=== PATIENT | male | born 1980 | race Two or more races ===

== ENCOUNTER 2025-01-27 17:45 | Inpatient (IN) | payer MEDICAID, OTHER ==
[~2025-01-27] VITALS: Ht 175.3 cm; Wt 97.9 kg
[2025-01-27] MEDS: NITROGLYCERIN 0.4 MG SL TAB SL ONE (18:20)
--- NOTE | 2025-01-27 18:54 | ED.PDOC ---
SOB-HPI HPI Comments HPI: 44 y/o M, presents to the ED for CC of shortness of breath. Patient states, that he has been experiencing shortness of breath with associated symptoms of weakness and nausea xdays. Patient relays, that he has a PMHX of HTN and A-fib and has been complainant with his prescriptions; however he has recently ran out of his atrial fibrillation medication. Patient current takes lisinopril and baby aspirin. Patient denies dizziness, blurred vision, or vomiting. No other symptoms or modifying factors at this time. VITALS: Temp: 98.0 BP:188/127 HR: 77 RR:21 SPO2:95% Past medical history: HTN, AFIB Past surgical history: RIGHT HIP, LEFT FIRST DIGIT HPI: Poor Historian. REVIEW OF SYSTEMS: CONSTITUTIONAL: Denies acute: fever, diaphoresis, chills, HEAD: Denies acute: headache, photophobia Eyes: Denies acute: Double vision, vision loss, eye pain, eye discharge. EARS: Denies acute: tinnitus, hearing loss, ear discharge, ear pain, THROAT: Denies acute: sore throat, swelling, difficulty swallowing , pain with swallowing, change in voice. NECK: Denies acute: neck pain, neck swelling, stiff neck. HEART: Denies acute : chest pain, palpitations, LUNGS: Denies acute: wheezing, cough, hemoptysis ABDOMEN: Denies acute: abdominal pain, , Vomiting, diarrhea, melena , hematemesis, hematochezia SKIN: Denies acute: rash, redness, lesions, itchiness. EXTREMITIES: Denies acute: calf pain, numbness, tingling, weakness, denies pain in extremity. Denies acute: Low back pain. Neuro: Denies acute: focal neurological deficit, motor or sensory focal neurological deficit, tremors, seizure like activity, confusion, dizziness, change in mental status, loss of bowel or bladder function, cauda equina like symptoms. : Denies acute: dysuria, hematuria, flank pain, increase in urinary frequency. PSYCH: Denies acute: hallucination, suicidal ideation, homicidal ideation. PHYSICAL EXAM: General: ---mild-----acute distress, awake and alert. Head: normocephalic, atraumatic. Neck: supple, trachea is midline, no swelling. Throat: Normal phonation. Eyes:, no erythema, no purulent discharge, no proptosis, no icterus. Heart: regular rate, regular rhythm, no significant murmur appreciated. Lungs: no apparent respiratory distress, Able to speak in full sentences. No wheezing, no rhonchi, no crackles. No stridors Clear to auscultation bilaterally. Abdomen: non tender to palpation, non distended, soft, no guarding, no rebound, + bowel sounds. Neuro: Awake, Alert, oriented to name, self, situation, follows commands GCS=15. Speech is normal. Skin: no petechia, no purpura, no cyanosis, non-pale, not jaundice. Lower extremities: --trace b/l- Pitting edema no deformity, no focal swelling, no calf TTP. Makes eye contact. moves all four extremities. Face: no apparent facial droop. Ambulating in the ED independently. ED COURSE: Chief Complaint: Shortness of Breath Time Seen by MD: 18:00 Reviewed notes: Nurses Notes, Medications, Allergies Information Source: Patient Mode of Arrival: Ambulatory Severity: Moderate Timing: Days Duration: Since onset Context: At Rest PE Risk Factors: None History of: None Prehospital treatment: None Modifying Factors: Nothing Associated Signs and Symptoms: None Was a procedure done? Was a procedure done?: No Differential Dx Differential Diagnosis: Other (DDx include ACS, unstable angina, anxiety, PE, pneumothroax, neoplasm, cardiac ischemia, COPD, asthma, CHF, pleural effusion, tobacco abuse, pneumonia, hypoxia, hypercapnia, anemia., infection/sepsis., pulmonary edema. Asthma, Cardiac tamponade, infection.) X-Ray, Labs, Meds, VS Vital Signs Date Time Temp Pulse Resp B/P (MAP) Pulse Ox O2 Delivery O2 Flow Rate FiO2 01/28/25 01:10 69 159/103 01/28/25 00:10 81 172/102 01/28/25 00:04 81 17 172/102 (125) 95 01/28/25 00:04 81 172/102 01/27/25 23:01 69 161/91 01/27/25 22:33 99.1 69 17 161/91 (114) 95 99.1 01/27/25 22:33 69 17 95 Room Air 01/27/25 22:32 161/91 01/27/25 18:20 173/107 01/27/25 18:08 20 95 Room Air* 0 21 01/27/25 18:06 79 01/27/25 18:01 98.0 86 20 173/107 (129) 95 98.0 Lab Test 01/27/25 22:39 01/27/25 22:23 01/27/25 20:53 01/27/25 19:46 Range/Units Urine Color Yellow Yellow Urine Clarity Clear Clear Urine pH 8.5 5.0-9.0 Urine Specific [place] 1.022 1.001-1.035 Urine Protein Trace H Negative Urine Ketones Negative Negative Urine Blood Negative Negative /uL Urine Nitrite Negative Negative Urine Bilirubin Negative Negative Urine Urobilinogen 2 H Negative mg/dL Urine Leukocyte Esterase Negative Negative /uL Urine RBC <1 0 - 3 /hpf Urine Microscopic WBC < 1 0-3 /HPF Urine Squamous Epithelial Cells None seen <5 /hpf Urine Bacteria None seen None Seen /hpf Urine Mucus Few None Seen Urine Glucose Normal Normal mg/dL Urine Opiates Screen Neg NEGATIVE Urine Fentanyl Screen Neg NEGATIVE Urine Barbiturates Screen Neg NEGATIVE Urine Phencyclidine Screen Neg NEGATIVE Urine Amphetamines Screen Neg NEGATIVE Urine Benzodiazepines Screen Neg NEGATIVE Urine Cocaine Screen Neg NEGATIVE Urine Cannabinoids Screen Neg NEGATIVE Blood Gas Specimen Type Arterial Blood Gas Sample Site Right radial Blood Gas Patient Temperature 37.0 Arterial Blood Date Drawn [id number] Arterial Blood pH 7.467 H 7.350-7.450 Arterial Blood Partial Pressure CO2 33.4 L 35.0-48.0 mmHg Arterial Blood Partial Pressure O2 76.6 L 83.0-108.0 mmHg Arterial Blood HCO3 23.6 21.0-28.0 mmol/L Arterial Blood Oxygen Saturation 95.7 94.0-98.0 % Arterial Blood Base Excess 0.7 -2.0-3.0 mmol/L Arterial Blood Oxyhemoglobin 94.9 94.0-98.0 % Arterial Blood Carboxyhemoglobin 0.2 L 0.5-1.5 % Arterial Blood Methemoglobin 0.6 0.0-1.5 % Stone Test Yes Blood Gas Total Hemoglobin 16.40 13.5-17.5 g/dL Blood Gas Modality Room air FiO2 % 21.0 Specimen Drawn By D-Dimer, Quantitative 0.25 0.0-0.49 mg/L FEU Troponin I High Sensitivity 3 L 3 L </=54 ng/L Plasma/Serum Blood Alcohol 4.1 <10 mg/dL Test 01/27/25 18:33 Range/Units White Blood Count 6.5 4.4-10.8 10^3/uL Red Blood Count 5.05 4.5-5.90 10^6/uL Hemoglobin 16.3 13.5-17.5 g/dL Hematocrit 46.9 41.0-53.0 % Mean Corpuscular Volume 92.9 80.0-100.0 fL Mean Corpuscular Hemoglobin 32.2 H 28.0-32.0 pg Mean Corpuscular Hemoglobin Concent 34.7 32.0-36.0 g/dL Red Cell Distribution Width 14.4 H 11.8-14.3 % Platelet Count 267 140-450 10^3/uL Mean Platelet Volume 7.3 6.9-10.8 fL Neutrophils (%) (Auto) 56.2 37.0-80.0 % Lymphocytes (%) (Auto) 31.7 10.0-50.0 % Monocytes (%) (Auto) 10.9 0.0-12.0 % Eosinophils (%) (Auto) 0.6 0.0-7.0 % Basophils (%) (Auto) 0.6 0.0-2.0 % Neutrophils # (Auto) 3.7 1.6-8.6 10 ^3/uL Lymphocytes # (Auto) 2.1 0.4-5.4 10 ^3/uL Monocytes # (Auto) 0.7 0-1.3 10 ^3/uL Eosinophils # (Auto) 0 0-0.8 10 ^3/uL Basophils # (Auto) 0 0-0.2 10 ^3/uL Nucleated Red Blood Cells 0.4 % Sodium Level 139 136-145 mmol/L Potassium Level 3.6 3.5-5.1 mmol/L Chloride Level 103 98-107 mmol/L Carbon Dioxide Level 29 20-31 mmol/L Anion Gap 7 5-15 Blood Urea Nitrogen < 5 L 9-23 mg/dL Creatinine 0.85 0.700-1.30 mg/dL Glomerular Filtration Rate Calc 111 >90 mL/min BUN/Creatinine Ratio 5.9 L 10.0-20.0 Serum Glucose 107 H 74-106 mg/dL Lactic Acid Level 2.0 0.4-2.0 mmol/L Calcium Level 9.6 8.7-10.4 mg/dL Magnesium Level 1.5 L 1.6-2.6 mg/dL Total Bilirubin 0.8 0.2-1.0 mg/dL Aspartate Amino Transferase (AST) 73 H 13-40 U/L Alanine Aminotransferase (ALT) 60 H 7-40 U/L Alkaline Phosphatase 92 46-116 U/L Troponin I High Sensitivity < 3 L </=54 ng/L B-Type Natriuretic Peptide 88.27 0-100 pg/mL Total Protein 7.6 5.7-8.2 g/dL Albumin 4.6 3.2-4.8 g/dL Lipase 38 12-53 U/L [place] [address] Ph: [phone] DIAGNOSTIC IMAGING Diagnostic Imaging Report : [id number] Signed PATIENT: CONSUELO FRYEACCT: [id number] UNIT: [id number] : 1980 LOC: ER ROOM / BED: / AGE / SEX: 44 / M ADM STATUS: REG ER SERVICE 10 ORDERING PHYSICIAN: DANI PRATER DO PROCEDURE(s): CXRP - CHEST PORTABLE REASON: sob/cp/gen weak/ ORDER NUMBER(s): [id number], ACCESSION NUMBER(s): [id number] CHEST RADIOGRAPH Indication: sob/cp/gen weak/ Technique: Single frontal view of the chest was obtained Comparison: None FINDINGS: Lines and Tubes: None Lungs: No focal consolidation. Pleura: No effusion. No pneumothorax. Cardiomediastinal contours: Unremarkable Bones: No acute osseous abnormality. IMPRESSION: No acute cardiopulmonary disease. ATED BY: AGUSTINA LINO DO DICTATED DATE/TIME: 01/27/251922 SIGNED BY: AGUSTINA LINO DO SIGNED DATE/TIME: 01/27/251922 CC: [place] [id number] Ph: [phone] DIAGNOSTIC IMAGING Diagnostic Imaging Report : [id number] Signed PATIENT: PRATIBHA FRYET: [id number] UNIT: [id number] : 1980 LOC: ER ROOM / BED: / AGE / SEX: 44 / M ADM STATUS: REG ER SERVICE 10 ORDERING PHYSICIAN: DANI PRATER DO PROCEDURE(s): HWOCT - HEAD WITHOUT CONTRAST REASON: weak, htn ORDER NUMBER(s): [id number], ACCESSION NUMBER(s): [id number] Procedure: CT HEAD WITHOUT CONTRAST Study Date and Requested Time: 01/27/2025 07:04 PM History: weak, htn Comparison: None Dose: CTDI: 63.82 mGy DLP: 1129.8 mGycm Technique: Multiplanar images obtained through the brain without intravenous contrast. Findings: Normal brain volume and formation. No hemorrhages, masses, mass effect, midline shift, herniation or cytotoxic edema following a large vascular territory. No intra-axial or extra-axial fluid collections. No evidence of hydrocephalus. The basal cisterns are patent. Nonspecific Partially Empty sella. The cerebellar tonsils are in normal position. The cerebellum is unremarkable. The orbits and globes are unremarkable. The paranasal sinuses and mastoids are clear. There are no worrisome calvarial lesions. Impression: No evidence of acute intracranial abnormality. Nonspecific partially empty sella. ATED BY: AGUSTINA LINO DO DICTATED DATE/TIME: 01/27/251938 SIGNED BY: AGUSTINA LINO DO SIGNED DATE/TIME: 01/27/251938 CC: Time of 1ST Reevaluation: 00:00 Reevaluation 1ST: Unchanged Time of 2ND Reevaluation: 00:00 Reevaluation 2ND: Improved Patient Education/Counseling: Diagnosis, Treatment Family Education/Counseling: Other Comments Patient presented with the above HPI.---shortness of breath---workup was initiated. patient was found with the above mentioned diagnosis. the following medications were ordered: please refer to order lists of meds and tests obtained by myself Dr. Prater. Patient ED course and VS have been stabilized. Patient has been reassessed in the ED and remained in a stable condition. Pertinent incidental findings were discussed with the patient and/or family. Patient/family voices understanding and is agreeable with plan. Patient has been observed in the ED adequate length of time to insure improvement/stability. Escalation of care considered: Consideration of escalation to observation or admission Patient was ADMITTED to the medicine team for further evaluation and treatment of their presentation. All the reports of any imaging studies that were ordered by myself were reviewed by myself. Departure 1 Departure Time of Disposition: 22:34 Impression: Primary Impression: Dyspnea Additional Impressions: Hypoxemia Hypertensive crisis Disposition: ADMITTED INPATIENT Admit to: Tele Condition: Guarded Additional Instructions: [place] [id number] Ph: [phone] DIAGNOSTIC IMAGING Diagnostic Imaging Report : [id number] Signed PATIENT: CONSUELO FRYE ACCT: [id number] UNIT: [id number] : 1980 LOC: ER ROOM / BED: / AGE / SEX: 44 / M ADM STATUS: REG ER SERVICE 10 ORDERING PHYSICIAN: DANI PRATER DO PROCEDURE(s): CXRP - CHEST PORTABLE REASON: sob/cp/gen weak/ ORDER NUMBER(s): [id number], ACCESSION NUMBER(s): [id number] CHEST RADIOGRAPH Indication: sob/cp/gen weak/ Technique: Single frontal view of the chest was obtained Comparison: None FINDINGS: Lines and Tubes: None Lungs: No focal consolidation. Pleura: No effusion. No pneumothorax. Cardiomediastinal contours: Unremarkable Bones: No acute osseous abnormality. IMPRESSION: No acute cardiopulmonary disease. ATED BY: AGUSTINA LINO DO DICTATED DATE/TIME: 01/27/251922 SIGNED BY: AGUSTINA LINO DO SIGNED DATE/TIME: 01/27/251922 CC: [place] [id number] Ph: [phone] DIAGNOSTIC IMAGING Diagnostic Imaging Report : [id number] Signed PATIENT: CONSUELO FRYE ACCT: [id number] UNIT: [id number] : 1980 LOC: ER ROOM / BED: / AGE / SEX: 44 / M ADM STATUS: REG ER SERVICE 10 ORDERING PHYSICIAN: DANI PRATER DO PROCEDURE(s): HWOCT - HEAD WITHOUT CONTRAST REASON: weak, htn ORDER NUMBER(s): [id number], ACCESSION NUMBER(s): [id number] Procedure: CT HEAD WITHOUT CONTRAST Study Date and Requested Time: 01/27/2025 07:04 PM History: weak, htn Comparison: None Dose: CTDI: 63.82 mGy DLP: 1129.8 mGycm Technique: Multiplanar images obtained through the brain without intravenous contrast. Findings: Normal brain volume and formation. No hemorrhages, masses, mass effect, midline shift, herniation or cytotoxic edema following a large vascular territory. No intra-axial or extra-axial fluid collections. No evidence of hydrocephalus. The basal cisterns are patent. Nonspecific Partially Empty sella. The cerebellar tonsils are in normal position. The cerebellum is unremarkable. The orbits and globes are unremarkable. The paranasal sinuses and mastoids are clear. There are no worrisome calvarial lesions. Impression: No evidence of acute intracranial abnormality. Nonspecific partially empty sella. ATED BY: AGUSTINA LINO DO DICTATED DATE/TIME: 01/27/251938 SIGNED BY: AGUSTINA LINO DO SIGNED DATE/TIME: 01/27/251938 CC: e-Prescriptions Lisinopril (Lisinopril) 20 Mg Tab 1 TAB PO DAILY for 30 Days, #30 TAB 5 Refills Prov: CLARK OTTO 01/29/25 Amlodipine Besylate (NORVASC TABLET) 5 Mg Tb 10 MG PO DAILY for 30 Days, #60 TAB Prov: CLARK OTTO 01/29/25 Acetaminophen (Acetaminophen) 325 Mg Tab 650 MG PO BID PRN for 5 Days, #20 TAB Prov: CLARK OTTO 01/29/25 Discharged With: Self Stability Stability form required: No Heart Score Heart Score: Heart Score Response (Comments) Value History Slightly Suspicious 0 EKG Normal 0 Age <45 0 Risk Factors >3 or Hx ASHD 2 Troponin Normal limit 0 Total 2 Critical Care Note Critical Care Time?: Yes (45 min-critical care time only) I personally scribed for DANI PRATER DO ([email or web address]) on 01/27/25 at 18:54. Electronically submitted by Shalini Ellsworth ([email or web address]). I personally scribed for DANI PRATER DO ([email or web address]) on 01/27/25 at 21:03. Electronically submitted by Shalini Ellsworth ([email or web address]). I personally scribed for DANI PRATER DO ([email or web address]) on 01/27/25 at 21:04. E lectronically submitted by Shalini Ellsworth ([email or web address]). DANI PRATER DO Jan 27, 2025 18:54
[2025-01-27 19:10] LABS: Albumin 4.6 g/dL (3.2-4.8); Alkaline Phosphatase 92 U/L (46-116); Anion Gap 7 (5-15); Calcium 9.6 mg/dL (8.7-10.4); Carbon Dioxide 29 mmol/L (20-31); Chloride 103 mmol/L (98-107); Lipase 38 U/L (12-53); Potassium 3.6 mmol/L (3.5-5.1); Sodium 139 mmol/L (136-145); Total Protein 7.6 g/dL (5.7-8.2)
[2025-01-27 19:11] LABS: Bilirubin, Total 0.8 mg/dL (0.2-1.0)
[2025-01-27 19:14] LABS: Basophils # (auto) 0 10 ^3/uL (0-0.2); Basophils % (auto) 0.6 % (0.0-2.0); Eosinophils # (auto) 0 10 ^3/uL (0-0.8); Eosinophils % (auto) 0.6 % (0.0-7.0); Hematocrit 46.9 % (41.0-53.0); Hemoglobin 16.3 g/dL (13.5-17.5); Lymphocytes # (auto) 2.1 10 ^3/uL (0.4-5.4); Lymphocytes % (auto) 31.7 % (10.0-50.0); Mean Corpuscular Hemoglobin 32.2 pg (28.0-32.0); Mean Corpuscular Hgb Conc. 34.7 g/dL (32.0-36.0); Mean Corpuscular Volume 92.9 fL (80.0-100.0); Monocytes # (auto) 0.7 10 ^3/uL (0-1.3); Monocytes % (auto) 10.9 % (0.0-12.0); Neutrophils # (auto) 3.7 10 ^3/uL (1.6-8.6); Neutrophils % (auto) 56.2 % (37.0-80.0); Nucleated Red Blood Cells % 0.4 %; Platelet Count (auto) 267 10^3/uL (140-450); Red Blood Cells 5.05 10^6/uL (4.5-5.90); Red Cell Distribution Width 14.4 % (11.8-14.3); White Blood Cell 6.5 10^3/uL (4.4-10.8)
[2025-01-27 19:24] LABS: Alanine Aminotransferase 60 U/L (7-40); Aspartate Aminotransferase 73 U/L (13-40); BUN/Creatinine Ratio 5.9 (10.0-20.0); Blood Urea Nitrogen < 5 mg/dL (9-23); Glucose 107 mg/dL (74-106); Magnesium 1.5 mg/dL (1.6-2.6)
--- NOTE | 2025-01-27 19:25 | DVH ---
CHEST RADIOGRAPH Indication: sob/cp/gen weak/ Technique: Single frontal view of the chest was obtained Comparison: None FINDINGS: Lines and Tubes: None Lungs: No focal consolidation. Pleura: No effusion. No pneumothorax. Cardiomediastinal contours: Unremarkable Bones: No acute osseous abnormality. IMPRESSION: No acute cardiopulmonary disease.
--- NOTE | 2025-01-27 19:41 | DVH ---
Procedure: CT HEAD WITHOUT CONTRAST Study Date and Requested Time: 01/27/2025 07:04 PM History: weak, htn Comparison: None Dose: CTDI: 63.82 mGy DLP: 1129.8 mGycm Technique: Multiplanar images obtained through the brain without intravenous contrast. Findings: Normal brain volume and formation. No hemorrhages, masses, mass effect, midline shift, herniation or cytotoxic edema following a large v ascular territory. No intra-axial or extra-axial fluid collections. No evidence of hydrocephalus. The basal cisterns are patent. Nonspecific Partially Empty sella. The cerebellar tonsils are in normal position. The cerebellum is u nremarkable. The orbits and globes are unremarkable. The paranasal sinuses and mastoids are clear. There are no wo rrisome calvarial lesions. Impression: No evidence of acute intracranial abnormality. Nonspecific partially empty sella.
[2025-01-27 22:28] LABS: Base Excess 0.7 mmol/L (-2.0-3.0)
[2025-01-27] MEDS: HYDROcodone-ACET 5/325MG TAB PO ONE (22:55)
[2025-01-27] MEDS: LABETALOL HCL 20 MG/4 ML VL IV ONE (23:01)
[2025-01-27 23:14] LABS: Urine Bacteria None Seen /hpf (None Seen)
[2025-01-27] MEDS: MAGNESIUM SULFATE 1GM/100ML 100 ML IV ONE (23:21)
[2025-01-27 23:39] LABS: Urine Blood Negative /uL (Negative); Urine Clarity Clear (Clear); Urine Color Yellow (Yellow); Urine Mucus FEW (None Seen); Urine Protein, UAD TRACE (Negative); Urine Specific Gravity 1.022 (1.001-1.035); Urine Squamous Epithelial Cell None Seen /hpf (<5); Urine Urobilinogen 2 mg/dL (Negative); Urine WBC < 1 /HPF (0-3); Urine pH 8.5 (5.0-9.0)
[2025-01-27 23:53] LABS: Amphetamine Screen, Urine Neg (NEGATIVE); Barbiturate Scree,Urine Neg (NEGATIVE); Benzodiazephine Screen, Urine Neg (NEGATIVE); Cannabinoid Screen, Urine Neg (NEGATIVE); Cocaine Screen, Urine Neg (NEGATIVE); Opiate Scree,Urine Neg (NEGATIVE); Phencyclidine Screen, Urine Neg (NEGATIVE)
[2025-01-28] VITALS (11 sets, daily range): BP systolic 137–166; BP diastolic 83–103; PULSE 58–89; RESP 16–20; TEMP 97.5–98.6; O2SAT 95–99
[2025-01-28] MEDS: LABETALOL HCL 20 MG/4 ML VL IV ONE (00:10)
[2025-01-28] MEDS ORDERED: MORPHINE SULFATE INJ 2 MG/ml SYRG IV PRN (03:00)
[2025-01-28] MEDS ORDERED: NITROGLYCERIN 0.4 MG SL TAB SL PRN (03:00)
[2025-01-28] MEDS: amLODIPine BESYLATE 5 MG TAB PO ONE (03:30)
[2025-01-28] MEDS: ENOXAPARIN SOD 40 MG/0.4 ML SYRINGE SC ONE (03:30)
--- NOTE | 2025-01-28 04:08 | DVHHPRES ---
History of Present Illness Resident Creating Document: ERNESTO COOLEY RESDIENT History of Present Illness This is a 44-year-old male with past medical history of hypertension and AFib came to the hospital due to headache since morning. Per patient he got headache upon waking up from sleep, then he slept back, and upon waking up back from sleep he still had pain which prompted this visit. He also reports palpitation, dizziness, lightheadedness, blurry vision, nausea and left hand pain. Due to palpitation, he was consult of having back AFib. He denies fever, cough, shortness of breaths, or any recent sick contact. PMHx: AFib and hypertension PSHx: Right hip surgery Family history: Mother has problem (does not remember the type) Social history: Vaping, drink occasionally, denies any other drug use Home medication: Aspirin, lisinopril 10 mg, previously was taking medicine for AFib (stopped taking due to no insurance, does not remember the name) Allergic history: No known allergy Review of Systems Review of Systems General: Reports generalized weakness HEENT: Reports headache Cardiovascular: Reports palpitation Respiratory: No cough, and wheezing. Gastrointestinal: Reports nausea. Genitourinary: No dysuria, hematuria, discharge, frequency, urgency, nocturia, incontinence, and urinary retention. Endocrine: No heat or cold intolerance, polydipsia, polyuria, and polyphagia. Neurological: Reports dizziness, blurry vision and lightheadedness Psychiatric: Denies depression, anxiety,or insomnia. Musculoskeletal: Denies neck pain, stiffness and swelling, back pain, muscle weakness, joint pain, stiffness, swelling, or limited range of motion. Skin: No rashes, itching, skin lesion, changes in hair, nail, skin texture and breast. Hematologic/Lymphatic: Denies easy bruising, bleeding tendencies, or lymph node enlargement. Allergies: Coded Allergies: NO KNOWN ALLERGIES (Unverified , 01/27/25) Medications Current Medications Medications Dose Ordered Sig/Eleni Route Start Time Stop Time Status Last Admin Dose Admin Nitroglycerin 0.4 mg Q5MINP PRN SL 01/28/25 03:00 Morphine Sulfate 2 mg Q30M PRN IV 01/28/25 03:00 Exam Vital Signs Vital Signs Date Time Temp Pulse Resp B/P (MAP) Pulse Ox O2 Delivery O2 Flow Rate FiO2 01/28/25 03:17 16 96 Room Air* 0 21 21 01/28/25 03:15 74 143/99 (114) 01/27/25 22:33 99.1 99.1 Exam General Appearance: Alert, Oriented X3, Cooperative, No acute distress HEENT: Atraumatic, PERRLA, EOMI, Mucous membrane moist/pink Respiratory: Clear to auscultation, Normal air movement Cardiovascular: Regular rate, Normal S1, Normal S2, No murmurs, no chest wall tenderness Abdominal: Normal bowel sounds, Soft, No tenderness, No hepatospenomegaly, No masses Extremities: No clubbing, No cyanosis, No edema, Normal pulses, No tenderness/swelling Skin: No rashes, No breakdown, No significant lesion Neuro: Normal gait, Normal speech, Strength at 5/5 X4 ext, Normal tone, Sensation intact, Cranial nerves 3-12 NL, Reflexes 2+ Psych/Mental Status: Mental status NL, Mood NL Labs/Xrays Labs Test 01/27/25 22:39 01/27/25 22:23 01/27/25 20:53 01/27/25 18:33 Range/Units Urine Color Yellow Yellow Urine Clarity Clear Clear Urine pH 8.5 5.0-9.0 Urine Specific [place] 1.022 1.001-1.035 Urine Protein Trace H Negative Urine Ketones Negative Negative Urine Blood Negative Negative /uL Urine Nitrite Negative Negative Urine Bilirubin Negative Negative Urine Urobilinogen 2 H Negative mg/dL Urine Leukocyte Esterase Negative Negative /uL Urine RBC <1 0 - 3 /hpf Urine Microscopic WBC < 1 0-3 /HPF Urine Squamous Epithelial Cells None seen <5 /hpf Urine Bacteria None seen None Seen /hpf Urine Mucus Few None Seen Urine Glucose Normal Normal mg/dL Urine Opiates Screen Neg NEGATIVE Urine Fentanyl Screen Neg NEGATIVE Urine Barbiturates Screen Neg NEGATIVE Urine Phencyclidine Screen Neg NEGATIVE Urine Amphetamines Screen Neg NEGATIVE Urine Benzodiazepines Screen Neg NEGATIVE Urine Cocaine Screen Neg NEGATIVE Urine Cannabinoids Screen Neg NEGATIVE Blood Gas Specimen Type Arterial Blood Gas Sample Site Right radial Blood Gas Patient Temperature 37.0 Arterial Blood Date Drawn [id number] Arterial Blood pH 7.467 H 7.350-7.450 Arterial Blood Partial Pressure CO2 33.4 L 35.0-48.0 mmHg Arterial Blood Partial Pressure O2 76.6 L 83.0-108.0 mmHg Arterial Blood HCO3 23.6 21.0-28.0 mmol/L Arterial Blood Oxygen Saturation 95.7 94.0-98.0 % Arterial Blood Base Excess 0.7 -2.0-3.0 mmol/L Arterial Blood Oxyhemoglobin 94.9 94.0-98.0 % Arterial Blood Carboxyhemoglobin 0.2 L 0.5-1.5 % Arterial Blood Methemoglobin 0.6 0.0-1.5 % Stone Test Yes Blood Gas Total Hemoglobin 16.40 13.5-17.5 g/dL Blood Gas Modality Room air FiO2 % 21.0 Specimen Drawn By D-Dimer, Quantitative 0.25 0.0-0.49 mg/L FEU Troponin I High Sensitivity 3 L </=54 ng/L Plasma/Serum Blood Alcohol 4.1 <10 mg/dL White Blood Count 6.5 4.4-10.8 10^3/uL Red Blood Count 5.05 4.5-5.90 10^6/uL Hemoglobin 16.3 13.5-17.5 g/dL Hematocrit 46.9 41.0-53.0 % Mean Corpuscular Volume 92.9 80.0-100.0 fL Mean Corpuscular Hemoglobin 32.2 H 28.0-32.0 pg Mean Corpuscular Hemoglobin Concent 34.7 32.0-36.0 g/dL Red Cell Distribution Width 14.4 H 11.8-14.3 % Platelet Count 267 140-450 10^3/uL Mean Platelet Volume 7.3 6.9-10.8 fL Neutrophils (%) (Auto) 56.2 37.0-80.0 % Lymphocytes (%) (Auto) 31.7 10.0-50.0 % Monocytes (%) (Auto) 10.9 0.0-12.0 % Eosinophils (%) (Auto) 0.6 0.0-7.0 % Basophils (%) (Auto) 0.6 0.0-2.0 % Neutrophils # (Auto) 3.7 1.6-8.6 10 ^3/uL Lymphocytes # (Auto) 2.1 0.4-5.4 10 ^3/uL Monocytes # (Auto) 0.7 0-1.3 10 ^3/uL Eosinophils # (Auto) 0 0-0.8 10 ^3/uL Basophils # (Auto) 0 0-0.2 10 ^3/uL Nucleated Red Blood Cells 0.4 % Sodium Level 139 136-145 mmol/L Potassium Level 3.6 3.5-5.1 mmol/L Chloride Level 103 98-107 mmol/L Carbon Dioxide Level 29 20-31 mmol/L Anion Gap 7 5-15 Blood Urea Nitrogen < 5 L 9-23 mg/dL Creatinine 0.85 0.700-1.30 mg/dL Glomerular Filtration Rate Calc 111 >90 mL/min BUN/Creatinine Ratio 5.9 L 10.0-20.0 Serum Glucose 107 H 74-106 mg/dL Lactic Acid Level 2.0 0.4-2.0 mmol/L Calcium Level 9.6 8.7-10.4 mg/dL Magnesium Level 1.5 L 1.6-2.6 mg/dL Total Bilirubin 0.8 0.2-1.0 mg/dL Aspartate Amino Transferase (AST) 73 H 13-40 U/L Alanine Aminotransferase (ALT) 60 H 7-40 U/L Alkaline Phosphatase 92 46-116 U/L B-Type Natriuretic Peptide 88.27 0-100 pg/mL Total Protein 7.6 5.7-8.2 g/dL Albumin 4.6 3.2-4.8 g/dL Lipase 38 12-53 U/L Assessment/Plan Assessment/Plan Presyncope History of AFib Uncontrolled hypertension EKGs shows normal sinus rhythm with no acute ST or T-wave changes Check echocardiogram Continue home meds, aspirin and lisinopril Started amlodipine Obesity grade 1 Hypomagnesemia, repleted Transaminitis DIET: Cardiac diet DVT PROPHYLAXIS: Lovenox GI PROPHYLAXIS:: Protonix, Zofran CODE STATUS: Goal of care discussed for more than 18 minutes, full code DISPOSITION: Telemetry Patient's status and plan discussed with the patient. Case discussed with Dr. Wiseman. Plan discussed with: Patient, Other (RN) My Orders Orders - ERNESTO COOLEY Procedure Category Date Status Time Magnesium Sulfate PHA 01/28/25 Logged 1gm/100ml 03:30 Magnesium LAB 01/28/25 Logged 03:25 Complete Blood Count LAB 01/28/25 Logged 03:25 Comprehensive LAB 01/28/25 Logged Metabolic Panel 03:25 Ondansetron Hcl PHA 01/28/25 Logged (Zofran) 03:30 Pantoprazole PHA 01/28/25 Logged (Protonix) 10:00 Lisinopril Tablet PHA 01/28/25 Logged (Zestril Tablet) 03:30 Lisinopril Tablet PHA 01/28/25 Transmitted (Zestril Tablet) 10:00 Amlodipine Tablet PHA 01/28/25 Transmitted (Norvasc Tablet) 03:30 Amlodipine Tablet PHA 01/28/25 Transmitted (Norvasc Tablet) 10:00 Aspirin Tablet PHA 01/28/25 Transmitted 03:30 Aspirin Tablet PHA 01/28/25 Transmitted 10:00 Enoxaparin Sodium PHA 01/28/25 Transmitted (Lovenox) 03:30 Enoxaparin Sodium PHA 01/28/25 Transmitted (Lovenox) 10:00 Cardiac DIET 01/28/25 Transmitted Diet-2gna,Lofat,Lochol Breakfast Admit ADMIT 01/28/25 Transmitted 03:25 Ondansetron Hcl PHA 01/28/25 Logged (Zofran) 03:30 Pantoprazole PHA 01/28/25 Logged (Protonix) 03:30 Date of Service: Jan 28, 2025 Billing Provider: ROB WISEMAN MD Common Visit Codes: [id number] INP/OBS CARE (HIGH) ERNESTO COOLEY RESDISARAI Jan 28, 2025 04:07 ROB WISEMAN MD Jan 28, 2025 14:45
[2025-01-28] MEDS: ONDANSETRON HCL 4 MG/2 ML VIAL IV ONE (04:33)
[2025-01-28] MEDS: PANTOPRAZOLE 40 MG/10 ML VIAL INJ IV ONE ×2 (04:33→16:36)
[2025-01-28] MEDS: ASPirin 81 mg TAB PO ONE (04:34)
[2025-01-28] MEDS: LISINOPRIL 5 MG TAB PO ONE (04:34)
[2025-01-28] MEDS ORDERED: LISI20TA56 PO (04:52)
[2025-01-28] MEDS ORDERED: ASPI1TAB20 PO (04:52)
[2025-01-28] MEDS: HYDROcodone-ACET 5/325MG TAB PO ONE (05:06)
[2025-01-28] MEDS: MAGNESIUM SULFATE 1GM/100ML 100 ML IV ONE (06:54)
[2025-01-28 08:51] LABS: Basophils # (auto) 0.1 10 ^3/uL (0-0.2); Basophils % (auto) 0.9 % (0.0-2.0); Eosinophils # (auto) 0.1 10 ^3/uL (0-0.8); Hematocrit 41.5 % (41.0-53.0); Lymphocytes # (auto) 2.4 10 ^3/uL (0.4-5.4); Lymphocytes % (auto) 37.1 % (10.0-50.0); Mean Corpuscular Hemoglobin 33.3 pg (28.0-32.0); Mean Corpuscular Hgb Conc. 36.1 g/dL (32.0-36.0); Mean Corpuscular Volume 92.2 fL (80.0-100.0); Monocytes # (auto) 0.6 10 ^3/uL (0-1.3); Monocytes % (auto) 9.8 % (0.0-12.0); Neutrophils # (auto) 3.3 10 ^3/uL (1.6-8.6); Neutrophils % (auto) 51.2 % (37.0-80.0); Nucleated Red Blood Cells % 0.1 %; Platelet Count (auto) 240 10^3/uL (140-450); Red Cell Distribution Width 14.4 % (11.8-14.3); White Blood Cell 6.4 10^3/uL (4.4-10.8)
[2025-01-28 09:10] LABS: Alkaline Phosphatase 84 U/L (46-116); Anion Gap 7 (5-15); BUN/Creatinine Ratio 6.3 (10.0-20.0); Carbon Dioxide 27 mmol/L (20-31); Chloride 102 mmol/L (98-107); Cholesterol 188 mg/dL (< 200); HDL Cholesterol 53 mg/dL (40-59); Potassium 3.6 mmol/L (3.5-5.1); Sodium 136 mmol/L (136-145); Total Protein 6.7 g/dL (5.7-8.2)
[2025-01-28 09:11] LABS: Bilirubin, Total 0.9 mg/dL (0.2-1.0)
[2025-01-28 09:21] LABS: Alanine Aminotransferase 44 U/L (7-40); Aspartate Aminotransferase 48 U/L (13-40); Blood Urea Nitrogen 5 mg/dL (9-23); Glucose 107 mg/dL (74-106); Triglycerides 507 mg/dL (< 150)
[2025-01-28] MEDS ORDERED: LISINOPRIL 5 MG TAB PO SCH (10:45)
[2025-01-28 11:08] LABS: Free T3 3.99 pg/mL (2.3-4.2); Free T4 (Free Thyroxine) 1.08 ng/dL (0.89-1.76)
[2025-01-28] MEDS ORDERED: PANTOPRAZOLE 40 MG/10 ML VIAL INJ IV ONE (13:15)
[2025-01-28] MEDS: ACETAMINOPHEN 325 MG TAB PO PRN (17:24)
--- NOTE | 2025-01-28 21:23 | DVHPNRES ---
Progress Note Date Seen: Jan 28, 2025 Resident Creating Document: CLARK OTTO RESIDENT Has the PT tested + for MRSA If YES, has PT been informed?: No Medical Necessity Reason Pt with a Central, PICC or Fol: No Subjective Review of Systems This is a 44-year-old male with past medical history of hypertension and AFib came to the hospital due to headache since 2 days, the headache is throbbing frontotemporal. Per patient he got headache upon waking up from sleep, then he slept back, and upon waking up back from sleep he still had pain which prompted this visit. He also reports palpitation, dizziness, lightheadedness, blurry vision, nausea and left hand pain. Due to palpitation, he was consult of having back AFib. He denies fever, cough, shortness of breaths, or any recent sick contact. No chest pain PMHx: AFib and hypertension PSHx: Right hip surgery Family history: Mother has problem (does not remember the type) Social history: Vaping, drink occasionally, denies any other drug use Home medication: Aspirin, lisinopril 10 mg, previously was taking medicine for AFib (stopped taking due to no insurance, does not remember the name) Allergic history: No known allergy Objective vital signs Vital Sign Date Time Temp Pulse Resp B/P (MAP) Pulse Ox O2 Delivery O2 Flow Rate FiO2 01/28/25 16:47 98.4 67 20 166/98 (120) 95 98.4 01/28/25 08:00 Room Air* 0 21 Total Intake and Output 01/27/25 01/27/25 01/28/25 15:00 23:00 07:00 Intake Total 100 ml Balance 100 ml medications Current Medications Medications Dose Ordered Sig/Eleni Route Start Time Stop Time Status Last Admin Dose Admin Nitroglycerin 0.4 mg Q5MINP PRN SL 01/28/25 03:00 Morphine Sulfate 2 mg Q30M PRN IV 01/28/25 03:00 Ondansetron HCl 4 mg Q4HPRN PRN IV 01/28/25 03:30 Amlodipine Besylate 10 mg DAILY PO 01/29/25 10:00 Aspirin 81 mg DAILY PO 01/29/25 10:00 Enoxaparin Sodium 40 mg DAILY SC 01/29/25 10:00 Lisinopril 10 mg BID PO 01/28/25 22:00 Pantoprazole Sodium 40 mg DAILY IV 01/29/25 10:00 Atorvastatin Calcium 20 mg HS PO 01/28/25 22:00 Acetaminophen 650 mg Q4HP PRN PO 01/28/25 16:45 01/28/25 17:24 650 MG Examination General Appearance: Alert, Oriented X3, Cooperative, No acute distress HEENT: Atraumatic, PERRLA, EOMI, Mucous membrane moist/pink Respiratory: Clear to auscultation, Normal air movement Cardiovascular: Regular rate, Normal S1, Normal S2, No murmurs, no chest wall tenderness Abdominal: Normal bowel sounds, Soft, No tenderness, No hepatospenomegaly, No masses Extremities: No clubbing, No cyanosis, No edema, Normal pulses, No tenderness/swelling Skin: No rashes, No breakdown, No significant lesion Neuro: Normal gait, Normal speech, Strength at 5/5 X4 ext, Normal tone, Sensation intact, Cranial nerves 3-12 NL, Reflexes 2+ Psych/Mental Status: Mental status NL, Mood NL laboratory and microbiology Laboratory Tests 01/28/25 08:02 Test 01/28/25 08:02 Range/Units Serum Glucose 107 H 74-106 mg/dL Problem List/Assessment/Plan Problem List/Assessment/Plan Presyncope History of AFib CHADVASC 1 Uncontrolled hypertension Obesity grade 1 Hypomagnesemia, repleted Transaminitis Hypertriglyceridemia Subclinical hypothyroidism EKGs shows normal sinus rhythm with no acute ST or T-wave changes Pending echocardiogram Continue home meds, aspirin and lisinopril (increase to BID) Started amlodipine Atorvastatin 20 mg Tylenol PRN No need of anticoagulation for now Normal head CT scan DIET: Cardiac diet DVT PROPHYLAXIS: Lovenox GI PROPHYLAXIS:: Protonix, Zofran CODE STATUS: Goal of care discussed for more than 18 minutes, full code DISPOSITION: Telemetry Patient's status and plan discussed with the patient. Case discussed with Dr. Pelaez Plan discussed with: Patient, Other (rn) My Orders My Orders Orders - CLARK OTTO Procedure Category Date Status Time Lisinopril Tablet PHA 01/28/25 In Process (Zestril Tablet) 22:00 Pantoprazole PHA 01/29/25 In Process (Protonix) 10:00 Atorvastatin (Lipitor) PHA 01/28/25 In Process 22:00 Acetaminophen Tablet PHA 01/28/25 In Process (Tylenol Tablet) 16:45 Date of Service: Jan 28, 2025 Billing Provider: LIBIA PELAEZ DO Common Visit Codes: [id number] INP/OBS CARE(HIGH) CLARK OTTO RESIDENT Jan 28, 2025 21:23 LIBIA PELAEZ DO Jan 30, 2025 15:07
[2025-01-28] MEDS: LISINOPRIL 5 MG TAB PO SCH (22:05)
[2025-01-28] MEDS: ATORVASTATIN 20 MG TAB PO SCH (22:06)
--- NOTE | 2025-01-28 23:50 | DVHSR ---
APPROVED REPORT EXAM: Two-dimensional and M-mode echocardiogram with Doppler and color Doppler. Blood Pressure: 148/91 mmHg INDICATION Syncope RISK FACTORS Height: 5'9", Weight: 220 DIMENSIONS LVDd5.9 (3.8-5.7cm)LA (2D)4.6 (1.9-4.0cm)Aortic Root3.5 (2.0-3.7cm) LVDs4.2 (2.5-4.0cm)LA (MM) (1.9-4.0cm)Aortic Cusp Exc2.1 (1.5-2.0cm) EF (%) 53.0 (55-70%)Rt. Atrium4.1 (1.9-4.0cm)Asc. Aorta3.2 cm IVSd1.4 (0.7-1.1cm)RV (D)3.5 (1.8-2.4cm) PWd1.0 (0.7-1.1cm) Mitral Valve MitralMitral Stenosis E wave0.74m/sMV Mean GR.mmHg A wave0.55m/sMV Peak GR.mmHg E/A ratio1.32D MVAcm2 DECEL [id number] 1/2 Timems Aortic Valve Aortic ValveAortic Stenosis V10.92m/Samantha Mean GR.7mmHg V21.73m/Samantha Peak GR.12mmHg LVOT Diameter2.4 (1.8-2.4cm)Doppler AVA2.40cm2 Pulmonic Valve V21.06m/s Other Information Quality : Technically LimitedRhythm : Technically limited study due to body habitus. Conclusion Mildly dilated LV with low normal systolic function. LVEF 50-55%. Normal wall motion. Normal diastoli c function. Normal RV size and systolic function. Mild LA enlargement. No significant valvular disease. Normal IVC. No pericardial effusion.
[2025-01-29] VITALS (8 sets, daily range): BP systolic 146–160; BP diastolic 81–104; PULSE 59–83; RESP 16–20; TEMP 97.4–98; O2SAT 96–100
[2025-01-29] MEDS ORDERED: AML5T PO (07:43)
[2025-01-29] MEDS ORDERED: LISI20TA56 PO (07:43)
[2025-01-29] MEDS ORDERED: ACET-1882 PO (07:43)
--- NOTE | 2025-01-29 09:25 | ECG ---
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
[2025-01-29] MEDS: amLODIPine BESYLATE 5 MG TAB PO SCH (09:34)
[2025-01-29] MEDS: PANTOPRAZOLE 40 MG/10 ML VIAL INJ IV SCH (09:35)
[2025-01-29] MEDS: ONDANSETRON HCL 4 MG/2 ML VIAL IV PRN (09:36)
[2025-01-29] MEDS: ASPirin 81 mg TAB PO SCH (09:37)
[2025-01-29] MEDS: ENOXAPARIN SOD 40 MG/0.4 ML SYRINGE SC SCH (09:38)
[2025-01-29] MEDS ORDERED: PANTOPRAZOLE 40 MG/10 ML VIAL INJ IV SCH (10:00)
[2025-01-29] MEDS ORDERED: LISINOPRIL 5 MG TAB PO SCH (10:00)
[2025-01-29] MEDS ORDERED: IBUPROFEN 600 MG TAB PO PRN (17:00)
[2025-01-29] MEDS ORDERED: hydrALAZINE HCL 20 MG/ML VL IV PRN (17:45)
--- NOTE | 2025-01-29 17:55 | DVHPNRES ---
Progress Note Date Seen: Jan 29, 2025 Resident Creating Document: CLARK OTTO RESIDENT Has the PT tested + for MRSA If YES, has PT been informed?: No Medical Necessity Reason Pt with a Central, PICC or Fol: No Subjective Review of Systems This is a 44-year-old male with past medical history of hypertension and AFib came to the hospital due to headache since 2 days, the headache is throbbing frontotemporal. Per patient he got headache upon waking up from sleep, then he slept back, and upon waking up back from sleep he still had pain which prompted this visit. He also reports palpitation, dizziness, lightheadedness, blurry vision, nausea and left hand pain. Due to palpitation, he was consult of having back AFib. He denies fever, cough, shortness of breaths, or any recent sick contact. No chest pain PMHx: AFib and hypertension PSHx: Right hip surgery Family history: Mother has problem (does not remember the type) Social history: Vaping, drink occasionally, denies any other drug use Home medication: Aspirin, lisinopril 10 mg, previously was taking medicine for AFib (stopped taking due to no insurance, does not remember the name) Allergic history: No known allergy Objective vital signs Vital Sign Date Time Temp Pulse Resp B/P (MAP) Pulse Ox O2 Delivery O2 Flow Rate FiO2 01/29/25 17:20 97.9 63 16 159/81 (107) 96 97.9 01/29/25 08:00 Room Air* 0 21 Total Intake and Output 01/28/25 01/28/25 01/29/25 15:00 23:00 07:00 Intake Total 100 ml 500 ml 1700 ml Output Total 1000 ml Balance 100 ml -500 ml 1700 ml medications Current Medications Medications Dose Ordered Sig/Eleni Route Start Time Stop Time Status Last Admin Dose Admin Nitroglycerin 0.4 mg Q5MINP PRN SL 01/28/25 03:00 Morphine Sulfate 2 mg Q30M PRN IV 01/28/25 03:00 Ondansetron HCl 4 mg Q4HPRN PRN IV 01/28/25 03:30 01/29/25 09:36 4 MG Amlodipine Besylate 10 mg DAILY PO 01/29/25 10:00 01/29/25 09:34 10 MG Aspirin 81 mg DAILY PO 01/29/25 10:00 01/29/25 09:37 81 MG Enoxaparin Sodium 40 mg DAILY SC 01/29/25 10:00 01/29/25 09:38 40 MG Lisinopril 10 mg BID PO 01/28/25 22:00 01/29/25 09:38 10 MG Pantoprazole Sodium 40 mg DAILY IV 01/29/25 10:00 01/29/25 09:35 40 MG Atorvastatin Calcium 20 mg HS PO 01/28/25 22:00 01/28/25 22:06 20 MG Acetaminophen 650 mg Q4HP PRN PO 01/28/25 16:45 01/29/25 09:32 650 MG Ibuprofen 600 mg Q6HP PRN PO 01/29/25 17:00 Hydralazine HCl 10 mg TIDPRN PRN IV 01/29/25 17:45 Examination General Appearance: Alert, Oriented X3, Cooperative, No acute distress HEENT: Atraumatic, PERRLA, EOMI, Mucous membrane moist/pink Respiratory: Clear to auscultation, Normal air movement Cardiovascular: Regular rate, Normal S1, Normal S2, No murmurs, no chest wall tenderness Abdominal: Normal bowel sounds, Soft, No tenderness, No hepatospenomegaly, No masses Extremities: No clubbing, No cyanosis, No edema, Normal pulses, No tenderness/swelling Skin: No rashes, No breakdown, No significant lesion Neuro: Normal gait, Normal speech, Strength at 5/5 X4 ext, Normal tone, Sensation intact, Cranial nerves 3-12 NL, Reflexes 2+ Psych/Mental Status: Mental status NL, Mood NL laboratory and microbiology Laboratory Tests 01/28/25 08:02 Test 01/28/25 08:02 Range/Units Serum Glucose 107 H 74-106 mg/dL Problem List/Assessment/Plan Problem List/Assessment/Plan Presyncope History of AFib CHADVASC 1 Uncontrolled hypertension Obesity grade 1 Hypomagnesemia, repleted Transaminitis Hypertriglyceridemia Subclinical hypothyroidism EKGs shows normal sinus rhythm with no acute ST or T-wave changes Pending echocardiogram Continue home meds, aspirin and lisinopril (increase to BID) Started amlodipine Atorvastatin 20 mg Tylenol PRN No need of anticoagulation for now Normal head CT scan Patient today had a trauma in the head, hold on DC. normal neurological exam, normal cranial nerves, normal motor and sensory functions, no bleeding, no hematoma, no LOC, head CT is ordered, xray of the should is also ordered DIET: Cardiac diet DVT PROPHYLAXIS: Lovenox GI PROPHYLAXIS:: Protonix, Zofran CODE STATUS: Goal of care discussed for more than 18 minutes, full code DISPOSITION: Telemetry Patient's status and plan discussed with the patient. Case discussed with Dr. Pelaez Plan discussed with: Patient, Other (rn) My Orders My Orders Orders - CLARK OTTO Procedure Category Date Status Time Discharge DISCHARGE 01/29/25 Transmitted 16:01 Hydralazine Injection PHA 01/29/25 In Process (Apresoline Inject 17:45 Date of Service: Jan 29, 2025 Billing Provider: LIBIA PELAEZ DO Common Visit Codes: [id number] INP/OBS CARE(HIGH) CLARK OTTO RESIDENT Jan 29, 2025 17:55 LIBIA PELAEZ DO Jan 30, 2025 15:07
[2025-01-29] MEDS: MORPHINE SULFATE INJ 2 MG/ml SYRG IV ONE (17:57)
--- NOTE | 2025-01-29 20:20 | DVH ---
EXAM: CT HEAD WITHOUT CONTRAST INDICATION: HEAD INJURY TECHNIQUE: CT of the head without intravenous contrast. Radiation Dose Information: CT Dose: CTDI volume is 53.99 mGy. Dose-length product is 863.9 mGy*cm The dose indicators for CT are the volume Computed Tomography (CT) Dose Index (CTDIvol) and the Dose Length Product (DLP), and are measured in units of mGy and mGy-cm, respectively. These indicators are not patient dose, but values generated from the CT scanner acquisition factors. The report includes radiation exposure data for exposures received during this examination. COMPARISON: CT HEAD WITHOUT CONTRAST on DOS: 01/27/25 FINDINGS: There is no evidence of acute intracranial hemorrhage, extra-axial collection, mass effect, midline s hift, herniation or hydrocephalus. The ventricles, sulci and cisterns are age appropriate. The mazariegos-white differentiation is intact. Patchy periventricular and subcortical white matter hypoattenuation is nonspecific but may be related to small vessel ischemic disease. The visualized paranasal sinuses and mastoid air cells are clear. The surrounding soft tissues and osseous structures are unremarkable. IMPRESSION: 1. No acute intracranial hemorrhage 2. No CT findings of territorial ischemia. 3. No CT findings of displaced skull fracture.
--- NOTE | 2025-01-29 21:04 | DVH ---
CLINICAL INDICATION: SHOULDER INJURY TECHNIQUE: 1 radiographic views of the left shoulder were obtained. Comparison: None FINDINGS/IMPRESSION: There is no evidence of acute fracture or dislocation. The visualized joint space is well maintained. The alignment is anatomical. There is no radiopaque foreign body.
[2025-01-30] VITALS (7 sets, daily range): BP systolic 130–153; BP diastolic 81–91; PULSE 63–106; RESP 17–18; TEMP 97.4–98.2; O2SAT 92–99
--- NOTE | 2025-01-30 16:45 | DVHDSRES ---
Discharge Summary Date of Admission Resident Creating Document: CLARK OTTO RESIDENT Jan 28, 2025 at 03:00 Date of Discharge: Jan 29, 2025 Admitting Diagnosis Syncopal Labs/Diagnostic Data: Laboratory Results Test 01/28/25 08:02 01/27/25 22:39 01/27/25 22:23 01/27/25 20:53 White Blood Count 6.4 10^3/uL (4.4-10.8) Red Blood Count 4.50 10^6/uL (4.5-5.90) Hemoglobin 15.0 g/dL (13.5-17.5) Hematocrit 41.5 % (41.0-53.0) Mean Corpuscular Volume 92.2 fL (80.0-100.0) Mean Corpuscular Hemoglobin 33.3 pg (28.0-32.0) Mean Corpuscular Hemoglobin Concent 36.1 g/dL (32.0-36.0) Red Cell Distribution Width 14.4 % (11.8-14.3) Platelet Count 240 10^3/uL (140-450) Mean Platelet Volume 7.2 fL (6.9-10.8) Neutrophils (%) (Auto) 51.2 % (37.0-80.0) Lymphocytes (%) (Auto) 37.1 % (10.0-50.0) Monocytes (%) (Auto) 9.8 % (0.0-12.0) Eosinophils (%) (Auto) 1.0 % (0.0-7.0) Basophils (%) (Auto) 0.9 % (0.0-2.0) Neutrophils # (Auto) 3.3 10 ^3/uL (1.6-8.6) Lymphocytes # (Auto) 2.4 10 ^3/uL (0.4-5.4) Monocytes # (Auto) 0.6 10 ^3/uL (0-1.3) Eosinophils # (Auto) 0.1 10 ^3/uL (0-0.8) Basophils # (Auto) 0.1 10 ^3/uL (0-0.2) Nucleated Red Blood Cells 0.1 % Sodium Level 136 mmol/L (136-145) Potassium Level 3.6 mmol/L (3.5-5.1) Chloride Level 102 mmol/L (98-107) Carbon Dioxide Level 27 mmol/L (20-31) Anion Gap 7 (5-15) Blood Urea Nitrogen 5 mg/dL (9-23) Creatinine 0.79 mg/dL (0.700-1.30) Glomerular Filtration Rate Calc 113 mL/min (>90) BUN/Creatinine Ratio 6.3 (10.0-20.0) Serum Glucose 107 mg/dL (74-106) Calcium Level 9.0 mg/dL (8.7-10.4) Magnesium Level 2.0 mg/dL (1.6-2.6) Total Bilirubin 0.9 mg/dL (0.2-1.0) Aspartate Amino Transferase (AST) 48 U/L (13-40) Alanine Aminotransferase (ALT) 44 U/L (7-40) Alkaline Phosphatase 84 U/L (46-116) Total Protein 6.7 g/dL (5.7-8.2) Albumin 4.0 g/dL (3.2-4.8) Triglycerides Level 507 mg/dL (< 150) Cholesterol Level 188 mg/dL (< 200) LDL Cholesterol mg/dL (< 100) HDL Cholesterol 53 mg/dL (40-59) Thyroid Stimulating Hormone (TSH) 8.54 uIU/mL (0.55-4.78) Free Thyroxine (T4) Calculated 1.08 ng/dL (0.89-1.76) Free Triiodothyronine (T3) pg/mL 3.99 pg/mL (2.3-4.2) Urine Color Yellow (Yellow) Urine Clarity Clear (Clear) Urine pH 8.5 (5.0-9.0) Urine Specific [place] 1.022 (1.001-1.035) Urine Protein Trace (Negative) Urine Ketones Negative (Negative) Urine Blood Negative /uL (Negative) Urine Nitrite Negative (Negative) Urine Bilirubin Negative (Negative) Urine Urobilinogen 2 mg/dL (Negative) Urine Leukocyte Esterase Negative /uL (Negative) Urine RBC <1 /hpf (0 - 3) Urine Microscopic WBC < 1 /HPF (0-3) Urine Squamous Epithelial Cells None seen /hpf (<5) Urine Bacteria None seen /hpf (None Seen) Urine Mucus Few (None Seen) Urine Glucose Normal mg/dL (Normal) Urine Opiates Screen Neg (NEGATIVE) Urine Fentanyl Screen Neg (NEGATIVE) Urine Barbiturates Screen Neg (NEGATIVE) Urine Phencyclidine Screen Neg (NEGATIVE) Urine Amphetamines Screen Neg (NEGATIVE) Urine Benzodiazepines Screen Neg (NEGATIVE) Urine Cocaine Screen Neg (NEGATIVE) Urine Cannabinoids Screen Neg (NEGATIVE) Blood Gas Specimen Type Arterial Blood Gas Sample Site Right radial Blood Gas Patient Temperature 37.0 Arterial Blood Date Drawn [id number] Arterial Blood pH 7.467 (7.350-7.450) Arterial Blood Partial Pressure CO2 33.4 mmHg (35.0-48.0) Arterial Blood Partial Pressure O2 76.6 mmHg (83.0-108.0) Arterial Blood HCO3 23.6 mmol/L (21.0-28.0) Arterial Blood Oxygen Saturation 95.7 % (94.0-98.0) Arterial Blood Base Excess 0.7 mmol/L (-2.0-3.0) Arterial Blood Oxyhemoglobin 94.9 % (94.0-98.0) Arterial Blood Carboxyhemoglobin 0.2 % (0.5-1.5) Arterial Blood Methemoglobin 0.6 % (0.0-1.5) Stone Test Yes Blood Gas Total Hemoglobin 16.40 g/dL (13.5-17.5) Blood Gas Modality Room air FiO2 % 21.0 Specimen Drawn By D-Dimer, Quantitative 0.25 mg/L FEU (0.0-0.49) Troponin I High Sensitivity 3 ng/L (</=54) Plasma/Serum Blood Alcohol 4.1 mg/dL (<10) Test 01/27/25 18:33 Lactic Acid Level 2.0 mmol/L (0.4-2.0) B-Type Natriuretic Peptide 88.27 pg/mL (0-100) Lipase 38 U/L (12-53) Other Laboratory Tests 01/28/25 08:02 Brief Hx & Hospital Course: Patient is a 44-year-old male with past medical history of hypertension, atrial fibrillation who came to the hospital with a chief complaint of headache for past two days. Which was throbbing in nature, frontotemporal, associated with palpitation, dizziness and lightheadedness and blurry vision. During further evaluation patient found to have high blood pressure ranging systolic in to 170s, underwent cardiac evaluation including echocardiogram which showed normal ejection fraction, no diastolic dysfunction. Given incident of head trauma during hospitalization, underwent CT scan which showed no intracranial hemorrhage. Patient did not have nausea, vomiting, blurry vision, mental alteration, CT scan was done which not show intracranial hemorrhage. Given patient asymptomatic, likely symptoms related to hypertension, patient advised to follow with primary care physician cough, come to emergency department if symptom recurs or worsens. Condition at Discharge: Stable Final Diagnosis/Problems List hypertensive crisis Presyncope History of AFib CHADVASC 1 Obesity BMI 31.9 Hyper triglyceridemia Subclinical hypothyroidism Transaminitis Discharge Disposition: Home Discharge Instruct/Medications Diet: Consistent carbohydrate, Cardiac 2g Na,low cholest Activity: No Restrictions, As Tolerated Follow Up/Referral: [facility] Medications: see prescription Discharge Statement: "Patient was advised to return to the ER or call 911 if any headaches, dizziness, shortness of breath, chest pain, abdominal pain, bleeding, fevers, or worsening of medical condition. Patient was counseled about treatment plan, medications, possible side effects, patientverbalized understanding. All questions were answered to the best of my ability. This discharge took greater then 30 minutes in planning, reviewing documentation, counseling the patient, and discussing with other team members." ASSESSMENT ASSESSMENT Assessment hypertensive crisis Presyncope History of AFib CHADVASC 1 KIRSTY JOHNSON RESIDENT Jan 30, 2025 16:45
== END 2025-01-30 19:00 | disposition home or self-care (01) | DRG 199 ==
LOC: ER 17:47 → OVERFLOW 01-28 03:00 → WEST WING 01-28 05:42 → TELE-WESTW 01-29 20:27
PROVIDERS: ADMIT Internal Medicine; ATTEND Internal Medicine
DX: I16.9 Hypertensive crisis, unspecified (principal); E03.8 Other specified hypothyroidism; I48.91 Unspecified atrial fibrillation; E66.811 Obesity, class 1; E83.42 Hypomagnesemia; R74.01 Elevation of levels of liver transaminase levels; E78.1 Pure hyperglyceridemia; Z68.32 Body mass index [BMI] 32.0-32.9, adult; Z79.899 Other long term (current) drug therapy
CPT/HCPCS: 36415; 36600; 70450; 71045; 73020; 80053; 80061; 80307; 80320; 81001; 82805; 83605; 83690; 83735; 83880; 84439; 84443; 84481; 84484; 85025; 85379; 93005; 93306; 96365; 96375; 96376; 99291; G0378; J2405; J2470